=== PATIENT | female | born 1980 | race Caucasian/White ===

== ENCOUNTER 2022-09-12 10:19 | Day surgery (SDC) | payer OTHER, SELFPAY ==
[2022-09-03 12:25] VITALS: BMI 34.8
--- NOTE | 2022-09-11 14:59 | PM.HPGS ---
History of Present Illness History of Present Illness Consent: Risks, benefits, and alternatives have been discussed and questions answered. Patient agrees to proceed with procedure. Chief complaint: Unspecified Abdominal Pain Narrative: Juliana Nunn is a 42 year old female who Who recently began experiencing new onset bilateral sharp abdominal pains.? This lasted for several days.? Prior to this occurring she did have a bowel movement that day but did not been following did not have a bowel movement for several days which is abnormal for her.? She did have an episode of around 3-4 days later of massive diarrhea and felt like something was blocking the stool from coming out with increased burping and decreased appetite.? Around 1 week ago she had a large amount of bright red blood in the toilet that occurred with every bowel movement but has since dissipated. Review of Systems Review of Systems: All systems reviewed & are unremarkable except as noted in HPI and below PMFSH Past Medical History Medical History Family history of bowel cancer Fatigue Hematochezia Lower abdominal pain Plantar fasciitis SOB (shortness of breath) Family History Family History Father Diabetes mellitus Family history of malignant neoplasm of skin Mother Family history of osteoporosis Family history of elevated blood lipids Family history of malignant neoplasm of skin Grandparent Family history of malignant neoplasm of skin Family history of malignant neoplasm of breast in first degree relative Social History Social History Smoking status: Never smoker Alcohol intake: current Substance use: never Substance use type: does not use Living arrangements: with family Spiritual care concerns: No Meds Home Medications and Allergies Home Medications Medication Instructions Recorded Confirmed Type multivitamin k-bmpeyllh-ndyppin 1 tablet PO DAILY 09/03/22 09/12/22 History fumarate 18 mg-vitamin K 25 mcg tablet Allergies Allergy/AdvReac Type Severity Reaction Status Date / Time No Known Allergies Allergy Verified 09/12/22 10:36 Exam Resp: Auscultation: clear to auscultation bilaterally Cardio: Rate: regular rate Rhythm: regular rhythm GI: GI Palp: Yes Soft to palpation and No Tenderness to palpation present (GI) Assessment and Plan Assessment and plan (1) Hematochezia: Code(s): K92.1 - Melena Status: Acute Assessment and Plan: Colonoscopy with possible biopsy or polypectomy or cautery or injection of substances.
--- NOTE | 2022-09-12 09:35 | P.PNAN_ITS ---
Anes - Initial Pre Proc Eval Procedure: Operation Date: 09/12/22 12:00 Proposed Procedures p Diagnostic Colonoscopy - Indio Sanchez MD Date/Time: 09/12/22 09:35 Surgeon: Indio Sanchez MD Pre Op Diagnosis: Unspecified Abdominal Pain Patient Data Age: 42 Gender: F Height: 1.73 m Weight: 104 kg Allergies Allergy/AdvReac Type Severity Reaction Status Date / Time No Known Allergies Allergy Verified 09/12/22 10:36 Home Medications Medication Instructions Recorded Confirmed Type multivitamin z-jondmhaf-yfxrkpf 1 tablet PO DAILY 09/03/22 09/12/22 History fumarate 18 mg-vitamin K 25 mcg tablet Patient hx anesthesia problems: none Family hx anesthesia problems: none Results Review: All pre-operative results and documents have been reviewed as part of the pre- operative evaluation. FOR[facility]LY [facility], [facility] Past Medical History Medical History (Updated 08/27/22 @ 15:39 by Concepción Dimas APRN) Family history of bowel cancer Fatigue Hematochezia Lower abdominal pain Plantar fasciitis SOB (shortness of breath) Family History Family History Father Diabetes mellitus Family history of malignant neoplasm of skin Mother Family history of osteoporosis Family history of elevated blood lipids Family history of malignant neoplasm of skin Grandparent Family history of malignant neoplasm of skin Family history of malignant neoplasm of breast in first degree relative Social History Social History Smoking status: Never smoker Alcohol intake: current Substance use: never Substance use type: does not use Living arrangements: with family Spiritual care concerns: No Anes - Eval Final PreProcedure Day of Procedure 09/12/22 09:35 Patient weight: obese Heart: regular rate and rhythm Lungs: clear to auscultation Airway: Mallampati scale class II Neurological: alert and oriented Last oral intake: >/= 8 hours ASA classification: II Emergent: no Anesthetic plan: proceed Anesthesia type and monitoring: general GIVS and standard monitoring Results Review: All pre-operative results and documents have been reviewed as part of the pre- operative evaluation. Informed Consent: The patient's anesthetic plan and its attendant risks and benefits were discus sed with the patient/family/POA. Questions were solicited and answers provided to the satisfaction of the patient/family/POA.
[2022-09-12 10:43] VITALS: BP 119/86; PULSE 73; RESP 16; TEMP 37; O2SAT 100; BMI 33.5
[2022-09-12] MEDS: LACTATED RINGERS 1,000 ML 150 ML IV CONT (10:53)
[2022-09-12 12:19] VITALS: BP 112/73; PULSE 71; RESP 16; O2SAT 98
[2022-09-12 12:29] VITALS: BP 120/78; PULSE 70; RESP 18; O2SAT 100
[2022-09-12 12:40] VITALS: BP 113/79; PULSE 63; RESP 19; O2SAT 100
--- NOTE | 2022-09-12 13:20 | WPDANESPN ---
Anes - Prog Note Post-Op Date/Time: 09/12/22 13:20 Cardiovascular status: normal Respiratory status: normal Airway patency: baseline Mental status: baseline Post-Op hydration status: normal Vital Signs: Last Vital Signs Temp 37.0 C 09/12/22 10:43 Pulse 63 09/12/22 12:40 Resp 19 09/12/22 12:40 BP 113/79 09/12/22 12:40 Pulse Ox 100 09/12/22 12:40 O2 Del Method Room Air 09/12/22 12:40 Pain Score (VAS): 0 I/O: Intake & Output 09/11/22 09/12/22 09/12/22 23:59 07:59 15:59 Intake Total 1160 Balance 1160 Post-procedural complaints: none Patient Feedback: Patient satisfied with anesthetic care. Other Findings: Patient vital signs back to baseline. Patient denies nausea and vomiting. Patient's pain under control. Patient OK for discharge.
== END 2022-09-12 12:55 | disposition home or self-care (01) ==
PROVIDERS: PCP Family Medicine; Visit Provider Internal Medicine Gastroenterology
PROC: 0DJD8ZZ Inspection of Lower Intestinal Tract, Via Natural or Artificial Opening Endoscopic (ICD-10-PCS; CPT 45378; principal; 2022-09-12 12:00)
DX: K92.1 Melena (principal)
CPT/HCPCS: 45378

== ENCOUNTER 2022-10-18 10:13 | Outpatient (CLI) | payer OTHER, SELFPAY ==
[2022-10-18 14:23] LABS: Cholesterol 222 mg/dL (0-200); HDL Direct 60 mg/dL; Triglycerides 95 mg/dL (<150)
[2022-10-18 14:33] LABS: LDL Cholesterol Direct 117 mg/dL
[2022-10-18 15:22] LABS: Free T4 Free Thyroxine 0.73 ng/mL (0.78-2.19)
== END 2022-10-18 10:14 | disposition home or self-care (01) ==
LOC: ANHGOSHLAB 10:13
PROVIDERS: PCP Family Medicine; Visit Provider Physician Assistant
DX: R79.89 Other specified abnormal findings of blood chemistry (principal)
CPT/HCPCS: 36415; 80061; 84439; 84443

== ENCOUNTER 2022-11-18 09:55 | Outpatient (CLI) | payer OTHER, SELFPAY ==
[2022-11-18 15:17] LABS: Free T4 Free Thyroxine 0.91 ng/mL (0.78-2.19)
== END 2022-11-18 09:56 | disposition home or self-care (01) ==
LOC: ANHGOSHLAB 09:56
PROVIDERS: PCP Family Medicine; Visit Provider Physician Assistant
DX: E03.9 Hypothyroidism, unspecified (principal)
CPT/HCPCS: 36415; 84439; 84443

== ENCOUNTER 2022-12-17 09:49 | Outpatient (CLI) | payer OTHER, SELFPAY ==
[2022-12-17 22:15] LABS: Free T4 Free Thyroxine 1.17 ng/mL (0.78-2.19)
== END 2022-12-17 09:50 | disposition home or self-care (01) ==
PROVIDERS: PCP Family Medicine; Visit Provider Physician Assistant
DX: E03.9 Hypothyroidism, unspecified (principal)
CPT/HCPCS: 36415; 84439; 84443

== ENCOUNTER → 2023-03-07 15:02 | Outpatient (CLI) | payer OTHER, SELFPAY ==
--- NOTE | ~2023-03-07 | MM_ITS ---
EXAMINATION: MM screening omari BI w frederick HISTORY: Screening mammogram TECHNIQUE: Craniocaudal and mediolateral oblique 3-D tomosynthesis images were obtained and synthetic 2-D images were generated. CAD analysis was submitted and interpreted. COMPARISON: No prior mammogram is available for comparison at this institution. BREAST PARENCHYMAL COMPOSITION: The breasts are almost entirely fatty. FINDINGS: There is no evidence of suspicious mass, calcification, or architectural distortion to sugg est malignancy in either breast. There has been no suspicious interval change. IMPRESSION: 1. No mammographic evidence of malignancy. 2. Recommend routine screening mammography in one year. BI-RADS Category 1: Negative Reviewed, dictated and finalized at location B.
== END ==
PROVIDERS: PCP Physician Assistant; Visit Provider Physician Assistant
DX: Z12.31 Encounter for screening mammogram for malignant neoplasm of breast (principal)
CPT/HCPCS: 77063; 77067

== ENCOUNTER 2023-06-12 09:16 | Outpatient (CLI) | payer OTHER, SELFPAY ==
[2023-06-12 14:58] LABS: Basophils Absolute Auto 0.1 K/mm3 (0.0-0.1); Basophils Percent Auto 1.1 % (0.2-1.2); Eosinophils Absolute Auto 0.2 K/mm3 (0-0.3); Eosinophils Percent Auto 2.6 % (0-4.4); Hematocrit 42.8 % (37.0-47.0); Hemoglobin 13.5 g/dL (12.0-15.0); Immature Granulocyte Absolute 0.04 K/mm3 (0.00-0.031); Immature Granulocyte Percent A 0.6 % (0-0.5); Lymphocytes Absolute Auto 2.06 K/mm3 (0.9-3.2); Lymphocytes Percent Auto 31.9 % (18.3-44.2); Mean Corpuscular HGB Conc 31.5 g/dl (32-36); Mean Corpuscular Volume 98.4 fl (80-100); Mean Platelet Volume 10.5 fl (7.4-10.4); Monocytes Absolute Auto 0.5 K/mm3 (0.1-0.6); Monocytes Percent Auto 7.1 % (2.6-8.5); Neutrophils Absolute Auto 3.7 K/mm3 (1.3-6.7); Neutrophils Percent Auto 56.7 % (45.5-73.1); Platelet Count Result 244 k/mm3 (150-375); Red Blood Count 4.35 M/mm3 (4.2-5.4); Red Cell Distribution Width 13.1 % (11.5-14.5); White Blood Count 6.5 K/mm3 (4.5-10.0)
[2023-06-12 15:27] LABS: Alanine Aminotransferase 19 U/L (6-35); Albumin Level 4.1 g/dL (3.5-5.1); Alkaline Phosphatase 58 U/L (38-126); Anion Gap 8 mmol/L (8-16); Aspartate Amino Transferase 52 U/L (14-36); Bilirubin,Total 0.8 mg/dL (0.2-1.3); Blood Urea Nitrogen 14 mg/dL (7-17); Calcium 9.1 mg/dL (8.4-10.2); Carbon Dioxide 24 mmol/L (22-30); Chloride 105 mmol/L (98-107); Cholesterol 229 mg/dL (0-200); Estimated Glomerular Filt Rate > 60; Glucose 67 mg/dL (65-110); HDL Direct 53 mg/dL; Potassium 4.1 mmol/L (3.4-5.0); Sodium 137 mmol/L (137-145); Triglycerides 79 mg/dL (<150)
[2023-06-12 15:38] LABS: LDL Cholesterol Direct 130 mg/dL
[2023-06-12 18:30] LABS: Free T4 Free Thyroxine 0.95 ng/mL (0.78-2.19)
[2023-06-12 20:00] LABS: Hemoglobin A1C 5.3 % (<5.7)
[2023-06-15 02:50] LABS: Thyroid Peroxidase Antibodies 1045 IU/mL (<9)
== END 2023-06-12 09:17 | disposition home or self-care (01) ==
LOC: ANHGOSHLAB 09:18
PROVIDERS: PCP Physician Assistant; Visit Provider Internal Medicine Endocrinology, Diabetes & Metabolism
DX: E03.9 Hypothyroidism, unspecified (principal); R63.5 Abnormal weight gain; R79.89 Other specified abnormal findings of blood chemistry; Z83.3 Family history of diabetes mellitus
CPT/HCPCS: 36415; 80053; 80061; 83036; 84439; 84443; 85025; 86376

== ENCOUNTER 2024-03-16 15:26 | Outpatient (CLI) | payer OTHER, SELFPAY ==
--- NOTE | ~2024-03-16 | CT_ITS ---
EXAMINATION: CT abdomen pelvis w con DATE: 03/16/2024 16:18 INDICATION: Unspecified abdominal pain. TECHNIQUE: Computed tomography (CT) of the abdomen and pelvis was performed with 100 mL Omnipaque 350 intravenous contrast. Automated exposure control and iterative reconstruction technique were employe d. The dose-length product was 1228.28 mGy-cm. COMPARISON: None. FINDINGS: The visualized portions of lung bases and stable mild atelectasis. No pleural effusion. The heart size is normal. No pericardial effusion. The liver, gallbladder, spleen, pancreas, adrenal gla nds, and kidneys are normal. There is an intrauterine device in expected position. There are no dilat ed loops of bowel. The appendix is normal. There are no pathologically enlarged lymph nodes. There is no free intraperitoneal fluid. There is mild thoracic and lumbar spondylosis. IMPRESSION: 1. No etiology for the patient's symptoms. Reviewed, dictated and finalized at location A.
== END 2024-03-16 15:27 | disposition home or self-care (01) ==
PROVIDERS: PCP Family Medicine; Visit Provider Nurse Practitioner Family
DX: R10.9 Unspecified abdominal pain (principal); R19.7 Diarrhea, unspecified
CPT/HCPCS: 74177; Q9967

== ENCOUNTER 2024-08-10 14:44 | Outpatient (CLI) | payer OTHER, SELFPAY ==
--- NOTE | ~2024-08-10 | MM_ITS ---
EXAMINATION: MM screening omari BI w frederick HISTORY: Screening mammogram TECHNIQUE: Craniocaudal and mediolateral oblique 3-D tomosynthesis images were obtained and synthetic 2-D images were generated. CAD analysis was submitted and interpreted. COMPARISON: 03/07/2023 BREAST PARENCHYMAL COMPOSITION:Not Dense. The breasts are almost entirely fatty FINDINGS: No suspicious mass, calcification, or architectural distortion are identified in either gabbie ast to suggest malignancy. There has been no suspicious interval change. IMPRESSION: No mammographic evidence of malignancy. Recommend routine screening mammography in one year. BI-RADS Category 1: Negative Reviewed, dictated and finalized at location .
== END 2024-08-10 14:45 | disposition home or self-care (01) ==
LOC: MICIMG 14:45
PROVIDERS: PCP Family Medicine; Visit Provider Obstetrics & Gynecology
DX: Z12.31 Encounter for screening mammogram for malignant neoplasm of breast (principal)
CPT/HCPCS: 77063; 77067

== ENCOUNTER 2024-08-25 10:07 | Outpatient (CLI) | payer OTHER, SELFPAY ==
--- OUTSIDE RECORDS SUMMARY | 2024-08-25 11:21 | XMS_ITS | Clinical Summary ---
Author Organization [facility] Address [address] [place] [address] Care Team Providers Care Baker Bread Name Role Phone Boyd Mcqueen MD Primary Care Provider [phone] Source Comments [facility],non-owned Affiliates and Associated Physician Practices is amultiple site organization consisting of ambulatory clinics and hospital sitesin [place], [place], [place] and [place]. This disclosure is being madepursuant to the Care Everywhere program and may not contain all information available regarding this patient. Last updated 18.[facility] [place] [facility] Allergies No known active allergies Immunizations Name Administration Dates Next Due INFLUENZA VACCINE, QUADR. (F LUZONE; FLULAVAL; FLUARIX; AFLURIA QUADRIVALENT; 6MO+), 0.5 ML (IIV4) 04/07/2020,04/28/2019,03/22/2018 Social History Tobacco Use Types Packs/Day Years Used Date Smoking Tobacco: Never Assessed Sex and Gender Information Value Date Recorded Sex Assigned at Not on file Gender Identity Not on file Sexual Orientation Not on file Plan of Treatment Health Maintenance Due Date Last Done Comments LIPID TESTING 1982 MAMMOGRAM 1982 PAP SMEAR 1982 HIV SCREENING 1997 HEPATITIS C SCREENING 08/18/2000 DTAP/TDAP/TD VACCINES (1 - Tdap) 2001 HEPATITIS B VACCINE (1 of 3 - 19+ 3-dose series) 2001 COVID-19 VACCINE (2023-2 5 season) 2024 INFLUENZA VACCINE (#1) 2024 , 04/28/2019, 03/22/2018 DEPRESSION SCREENING 06/02/2024 ZOSTER VACCINE (1 of 2) 2032 HIB VACCINE Aged Out No longer eligi ble based on patient's age to complete this topic HPV VACCINE Aged Out No longer eligi ble based on patient's age to complete this topic MENINGOCOCCAL (Group B) VACCINE SHARED DECISION-MAKING Aged Out No longer eligible based on patient's age to complete this topic MENINGOCOCCAL GROUPS A/C/Y/W VACCINE Aged Out No longer eligible b ased on patient's age to complete this topic PNEUMOCOCCAL VACCINE Aged Out No long er eligible based on patient's age to complete this topic Care Teams Baker Bread Relationship Specialty Start Date End Date Boyd Mcqueen MD [facility] [place] [id number] PCP - General Family Medicine 03/22/18
--- OUTSIDE RECORDS SUMMARY | 2024-08-25 11:21 | XMS_ITS | Data Portability ---
Author Organization [facility] Address [address] [place] [address] [place] [address] Care Team Providers Care Ballistic Expert Name Role Phone GRANTJORDAN KATHI Primary Care Provider Assessment Encounter Date Assessment Date Assessment LastModified by Organization Details LastModified Time 10/12/2019 10/12/2019 Annual gynecological exam performed. Patient will come back in a year unless there are new symptoms. [email or web address] Not available 10/12/2019 12:09:20 10/13/2020 10/13/2020 Mom-colon cancer MGM-Breast cancer [email or web address] Not available 10/13/2020 16:41:54 10/02/2022 10/02/2022 Annual gynecological exam performed. Patient will come back in a year unless there are new symptoms. [email or web address] Not available 10/02/2022 16:07:46 01/07/2024 01/07/2024 Annual gynecological exam performed. Patient will come back in a year unless there are new symptoms. [email or web address] Not available 01/07/2024 10:49:09 Plan of Treatment Reminders Order Date Submit Date Provider Last Modified By Organization Details Last Modified Time Details Appointments None recorded. Lab None recorded. Referral None recorded. Procedures None recorded. Surgeries None recorded. Imaging MAMMO, screening, digital, bilateral 2023 024 [facility], [address], [place], [address], 05:01:19 MAMMO, screening, bilateral 2022 023 [facility], [address], [place], [address], 3 05:00:49 Medication Orders None recorded. Patient TargetsNo targets recorded. Patient InstructionsNo instructions recorded. Reason for Referral None Reported. Results Created Date Observation Date Name Description Value Unit Range Abnormal Flag Note LastModifiedBy Organization Detail LastModifiedTime 10/12/19 20 10/13/2019 pap, LB Pap test thin prep Negati ve for Intrae pithel ial Lesion or Malign bj normal ACCES CHUN #: [id number] Sourc e: Cervi feroz/E ndoce rvica l LMP: 09/30 Date Taken : 10/11 Speci men Type: ThinP rep Vial Date Repor lauro: 2019 Clini feroz Data: Cytot ech: Milton Rocha s, CT( CP) Date Repor lauro: 2019 Speci men Adequ acy: Satis facto ry for evalu ation Endoc ervic al/tr ansfo rmati on zone compo nent prese nt Gener al Categ oriza tion: NEGAT SKIP FOR INTRA EPITH ELIAL LESIO N OR MALIG GERARDO This speci men has been ernie zed by the ThinP rep Imagi ng Syste m, an inter activ e compu ter syste m which juan ts the lab in the scree mariya of ThinP rep Pap Test slide s. Follo imagi ng, the slide was revie wed by a Cytot echno logis t and/o r Patho logis t. D N A A S S A Y S R E P O R T TEST NAME RESUL TS ----- ---- ----- -- HPV High Risk Scree n (TMA) ThinP rep Vial The human papil lomav irus (HPV) High Risk Scree n is an FDA-a pprov ed in-vi tro ampli fied nucle ic acid test for the quali tativ e detec tion of E6/E7 viral mRNA. Resul ts shoul d be corre lated with patie nt prese ntati on, histo ry, cervi feroz cytol ogy and other clini feroz and labor atory findi ngs. See https ://KIT digital/s ites/ defau lt/fi 0 /AW- [id number] _002_ 01.pd f for jorge er infor anjali n. Test perfo rmed by [employer] [email or web address], d/b/a [facility], [address], [place] [address] , Gema Jacinto ra, DO, Labor atory Dire tor. HPV High Risk *HPV NOT DETEC LAURO (TYPE S 16, 18, 31, 33, 35, 39, 45, 51, 52, 56, 58, 59, 66, 68) *HPV: The human papil lomav irus (HPV) High Risk Rand christensen is an FDA-a pprov ed in-vi tro ampli fied nucle ic acid test for the quali tativ e detec tion of E6/E7 viral mRNA. Resul gabrielle arroyo corre lated with manish rojas prese ntati on, histo ry, cervi feroz cytol ogy and other clini feroz and labor atory findi ngs. See https ://KIT digital/s ites/ defau lt/fi 0180 /AW- [id number] _002_ 01.pd f for jorge er infor anjali n. Test perfo rmed by [email or web address], d/b/a [facility], [address], [place] [address] , Gema Jacinto ra, , Labor atory [place]ire [facility]. End of t Techn ical servi bella provi ded by [email or web address], d/b/a [facility], [address] [place] [address] Adin Rivera MD, Labor ator Dire tor. Case revie wed and diagn osis rende red at [email or web address], d/b/a [facility], [address] [place] [address] Adin Rivera MD, [facility]. CONFI DENTI AL Not Available [facility] ([facility]) [address], [place], [address], 10/13/2019 18:02:46 10/12/19 20 10/13/2019 HPV DNA, high- risk HPV high risk NOT DETECT ED normal Not Available [facility] ([facility]) [address], [place], [address], 10/13/2019 18:02:46 10/14/19 21 10/13/2020 pap, IG + HR HPV image guided Pap, HPV regardless of Pap result SEE RESULT S BELOW CASE REPOR T: Cytol ogy Gynec ologi feroz Repor t Case: [id number] Autho queenie kingsley Provi yaquelin: Hector Piper Colle cted: 10/13 1611 [employer] Order ing Locat ion: [place] Patho logy Recei ryan: 10/14 0145 First Scree n: Pepito Valdovinos, CT Speci men: Scree mariya Pap - Image d, Cervi x STATE MENT OF ADEQU ACY: Satis facto ry for evalu ation Trans forma tion zone compo nent absen t FINAL DIAGN OSIS: Negat skip for Intra epith elial Lesjacques n or Melinda lee sarah d by Pepito Valdovinos, CT on 2020 at 8:45 PM ----- ----- ----- ----- ----- ----- ----- ----- ----- ----- ----- ----- ----- ----- ----- ----- ----- ---- HPV RESUL TS: HPV mRNA E6/E7 : No HPV mRNA Detec lauro NOTE: This high risk HPV mRNA assay detec ts fourt een high- risk HPV types (16, 18, 31, 33, 35, 39, 45, 51, 52, 56, 58, 59, 66, 68) witho ut diffe renti ation . CHART ABLE COMME NT: Note: This speci men was revie wed by a Cytot echno logis t and/o r Patho logis t (as indic ated in this repor t) after evalu ation using the Thinp rep Imagi ng Syste m. CLINI FEROZ INFOR MATIO N: Menst rual Statu s: LMP (if appli cable ): 2018 Clini feroz Histo ry/Pr eviou s Pap: Type of Neopl nadja (if appli cable ): Other Histo ry: Hormo janeen (if appli cable ): PAP EDUCA JAMES L NOTE: The Pap Test is a scree mariya test with an inher ent false negat skip rate. Liqui d-bas e sampl ing may decre ase, but will not elimi , false negat skip resul ts. A negat skip resul t does not precl ude the prese nce and/o r devel opmen t of disea se, since the prese nce of abnor mal cells in the sampl e depen ds on the locat ion of the lesio n and sampl ing techn ique. Sushma nued regul ar scree mariya is the best metho d of cance r preve ntion . If repor lauro cytol ogic findi ng do not corre late with physi feroz and/o r histo rical findi ngs, furth er inves tigat ion is recom greta d, as clini luann warrmarla nted. Not Available [facility] (Lab) [address], [place], [address], 10/16/2020 21:48:05 10/03/19 23 10/02/2022 IMAGE GUIDE D PAP AND HPV REGAR DLESS image guided Pap, HPV regardless of Pap result SEE RESULT S BELOW CASE REPOR T: Cytol ogy Gynec ologi feroz Repor t Case: [id number] Autho queenie kingsley Provi yaquelin: Hector Piper Colle cted: 10/024 [employer] Order ing Locat ion: [place] Patho logciat Recei ryan: 10/03 First Scree n: Miladis Gonzalez, CT Rescr een: aRquel Cuenca ed, CT Speci men: Scree mariya Pap - Image d, Cervi x STATE MENT OF ADEQU ACY: Satis facto ry for evalu ation Trans forma tion zone compo nent absen t The absen ce of an endoc ervic al compo nent was confi rmed by an addit ional scree ner. FINAL DIAGN OSIS: Negat skip for Intra epith elial Lesio n or Melinda angel (NIL) . Elect tomasz lee sarah d by Raquel Cuenca ed, CT on 023 at 7:06 PM ----- ----- ----- ----- ----- ----- ----- ----- ----- ----- ----- ----- ----- ----- ----- ----- ----- ---- HPV RESUL TS: HPV mRNA E6/E7 : No HPV mRNA Detec lauro NOTE: This high risk HPV mRNA assay detec ts fourt een high- risk HPV types (16, 18, 31, 33, 35, 39, 45, 51, 52, 56, 58, 59, 66, 68) witho ut diffe renti ation . COMME NT: This speci men was revie wed by a Cytot echno logis t and/o r Patho logis t (as indic ated in this repor t) after evalu ation using the Thinp rep Imagi ng Syste m. CLINI FEROZ INFOR MATIO N: Menst rual Statu s: LMP (if appli cable ): Clini feroz Histo ry/Pr eviou s Pap: Type of Neopl nadja (if appli cable ): Signi fican t Clini feroz Findi ngs: Other Histo ry: Hormo janeen (if appli cable ): PAP EDUCA JAMES L NOTE: The Pap Test is a scree mariya test with an inher ent false negat skip rate. Liqui d-bas ed sampl ing may decre ase, but will not elimi , false negat skip resul ts. A negat skip resul t does not precl ude the prese nce and/o r devel opmen t of disea se, since the prese nce of abnor mal cells in the sampl e depen ds on the locat ion of the lesio n and sampl ing techn ique. Sushma nued regul ar scree mariya is the best metho d of cance r preve ntion . If repor lauro cytol ogic findi ng do not corre late with physi feroz and/o r histo rical findi ngs, furth er inves tigat ion is recom greta d, as clini luann russell nted. Not Available [facility] (Lab) [address], [place], [address], 10/04/2022 20:09:31 01/07/20 24 01/07/2024 IMAGE GUIDE D PAP AND HPV REGAR DLESS image guided Pap, HPV regardless of Pap result SEE RESULT S BELOW CASE REPOR T: Cytol ogy Gynec ologi feroz Repor t Case: [id number] Autho queenie kingsley Provi yaquelin: Chiquita Coleman, YOKASTA Mehta cted: 01/06 1055 Order ing Locat ion: [place] Patho logy Recei ryan: 01/07 0101 First Scree n: June Colunga ret, CT Speci men: Scree mariya Pap - Image d, Cervi x STATE MENT OF ADEQU ACY: Satis facto ry for evalu ation Trans forma tion zone compo nent prese nt ----- ----- ----- ----- ----- ----- ----- ----- ----- ----- ----- ----- ----- ----- ----- ----- ----- ---- FINAL DIAGN OSIS: Negat skip for Intra epith elial Lesio n or Melinda angel (NIL) . Elect tomasz lee sarah d by June Colunga ret, CT on 2023 at 1:07 PM ----- ----- ----- ----- ----- ----- ----- ----- ----- ----- ----- ----- ----- ----- ----- ----- ----- ---- HPV RESUL TS: HPV mRNA E6/E7 : No HPV mRNA Detec lauro NOTE: This high risk HPV mRNA assay detec ts fourt een high- risk HPV types (16, 18, 31, 33, 35, 39, 45, 51, 52, 56, 58, 59, 66, 68) witho ut diffe renti ation . COMME NT: This speci men was revie wed by a Cytot echno logis t and/o r Patho logis t (as indic ated in this repor t) after evalu ation using the Thinp rep Imagi ng Syste m. CLINI FEROZ INFOR MATIO N: Menst rual Statu s: LMP (if appli cable ): Clini feroz Histo ry/Pr eviou s Pap: Type of Neopl nadja (if appli cable ): Signi fican t Clini feroz Findi ngs: Other Histo ry: Hormo janeen (if appli cable ): PAP EDUCA JAMES L NOTE: The Pap Test is a scree mariya test with an inher ent false negat skip rate. Liqui d-bas ed sampl ing may decre ase, but will not elimi , false negat skip resul ts. A negat skip resul t does not precl ude the prese nce and/o r devel opmen t of disea se, since the prese nce of abnor mal cells in the sampl e depen ds on the locat ion of the lesio n and sampl ing techn ique. Sushma nued regul ar scree mariya is the best metho d of cance r preve ntion . If repor lauro cytol ogic findi ng do not corre late with physi feroz and/o r histo rical findi ngs, furth er inves tigat ion is recom greta d, as clini luann russell nted. Not Available [facility] (Lab) [address], [place], [address], 01/14/2024 14:11:02 08/11/1908/10/2024 MAMMO , scree mariya, digit al, bilat eral No observ ation record ed. [facility] [address], [place], [address], 08/11/2024 12:26:14 Result Notes None recorded. Problems Name Problem SNOMED Code Status Onset Date Resolution Date Notes Provider Name and Address Organization Details Recorded Time Pregnanc y test negative [id number] Completed 201610/13/2020 Encounte r for pregnanc y test, result negative ;Recorde d Elsewher e: No Locat ion: [facility] S ource: EHR Alterations Supervisor carolina: Pastor Mccall ce ID: 0001 Twan lable Time: 02:00:00 PM Vidhi [facility] 16:09:09 Speciali zed medical examinat ion Completed 201010/13/2020 Gynecolo gical Examinat ion;Rosas rded Elsewher e: No Locat ion: [facility] S ource: EHR Alterations Supervisor carolina: N Stefany ce ID: 0001 Twan lable Time: 02:45:00 PM Vidhi Bishop [facility] 16:09:30 Irregula r periods [id number] Completed 201310/13/2020 Irregula r menstrua l cycle;Re corded Elsewher e: No Locat ion: [facility] S ource: EHR Alterations Supervisor carolina: N Lillyti ce ID: 0001 Twan lable Time: 09:15:00 AM Vidhi Bishop [facility] 16:09:[address] Concept Completed 201410/13/2020 Encntr for bad credit collector exam (general ) (routine ) w/o abn findings ;Recorde d Elsewher e: No Locat ion: [facility] S ource: EHR Alterations Supervisor carolina: N Practi ce ID: 0001 Twan lable Time: 04:30:00 PM Vidhi pettit [facility] 16:09:21 Family planning surveill ance Completed 201310/13/2020 Contrace ptive surveill ance, unspecif ied;Rosas rded Elsewher e: No [facility] ource: EHR Alterations Supervisor carolina: N Practi ce ID: 0001 Twan lable Time: 03:30:00 PM Vidhi Bishop [facility], [facility] 16:09:19 Abnormal uterine bleeding [id number] 100 Completed 201610/13/2020 Other specifie d abnormal uterine and vaginal bleeding ;Recorde d Elsewher e: No Locat ion: [facility] S ource: EHR Alterations Supervisor carolina: N Practi ce ID: 0001 Twan lable Time: 02:30:00 PM Vidhi pettit, [facility] 16:09:27 Postpart um care Completed 201210/13/2020 Post Followup ;Recorde d Elsewher e: No Locat ion: [facility] S ource: EHR Alterations Supervisor carolina: N Practi ce ID: 0001 Twan lable Time: 11:15:00 AM Vidhi pettit, [facility] 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 16:09:02 Body mass index 30+ - obesity [id number] Completed 201710/13/2020 Body mass index (BMI) 31.0-31. 9, adult;Re corded Elsewher e: No Locat ion: [facility] S ource: EHR Alterations Supervisor carolina: N Practi ce ID: 0001 Twan lable Time: 11:30:00 AM Vidhi pettit, [facility] 16:08:54 Uterine size for dates discrepa ncy [id number] Completed 201210/13/2020 UTERINE SIZE MIRA-ANTE PAR;Rosas rded Elsewher e: No Locat ion: [facility] S ource: EHR Alterations Supervisor carolina: N Practi ce ID: 0001 Twan lable Time: 04:45:00 PM Vidhi pettit, [facility] 16:09:25 Pregnanc y test positive [id number] Completed 201010/13/2020 Pregnanc y examinat ion or test, positive result;R ecorded Elsewher e: No [facility]at ion: [facility]: N Practi ce ID: 0001 Twan lable Time: 02:45:00 PM Vidhi pettit, [facility] 16:09:07 Routine antenata l care Completed 201210/13/2020 Supervis ion of other normal pregnanc y;Practi ce ID: 0001 Vidhi pettit, [facility] 16:08:51 Labor and delivery complica lauro by heart rate anomaly [id number] Completed 201210/13/2020 HEART RATE NON REASSURI NG;Pract ice ID: 0001 Vidhi pettit, [facility] 16:09:10 Delivery normal [id number] Completed 201210/13/2020 Normal delivery ;Practic e ID: 0001 Vidhi pettit, [facility] 16:09:28 Single live [id number] Completed 201210/13/2020 Mother with single liveborn ;Practic e ID: 0001 Vidhi pettit, [facility] 16:08:57 Screenin g for malignan t neoplasm of cervix Completed 201210/13/2020 Pap Smear;Pr actice ID: 0001 [facility]:08:58 Insertio n of intraute rine contrace ptive device Completed 201310/13/2020 INSERTIO N OF IUD;Prac chris ID: 0001 [facility] 16:09:34 Obesity [id number] Completed 201310/13/2020 Obesity, unspecif ied;Prac chris ID: 0001 Vidhi pettit, [facility] 16:09:24 Adult health examinat ion Completed 201310/13/2020 Routine general medical examinat ion at a health care facility ;Practic e ID: 0001 iVdhi pettit, [facility] 16:09:12 Removal of intraute rine device Completed 201810/13/2020 Encounte r for removal of intraute rine contrace ptive device;P ractice ID: 0001 Vidhi pettit, [facility] 16:09:35 Chlamydi al vulvovag initis [id number] Completed 201810/13/2020 Chlamydi al vulvovag initis;P ractice ID: 0001 Vidhi pettit [facility] 16:09:03 Female genital organ symptoms [id number] Completed 201210/13/2020 Unspecif ied symptom associat ed with female genital organs;R ecorded Elsewher e: No Locat ion: [facility] S ource: EHR Alterations Supervisor carolina: N Lillyti ce ID: 0001 Twan lable Time: 02:45:00 PM Vidhi pettit [facility] 16:09:[address] Concept Completed 201610/13/2020 Encntr for general adult medical exam w/o abnormal findings ;Recorde d Elsewher e: No Locat ion: [facility] S ource: EHR Alterations Supervisor carolina: N Stefany ce ID: 0001 Twan lable Time: 04:30:00 PM Vidhi pettit [facility] 1 16:09:22 Infectio n screenin g Completed 201810/13/2020 Encounte r for screenin g for oth infec/pa rastc diseases ;Recorde d Elsewher e: No Locat ion: [facility] S ource: EHR Alterations Supervisor carolina: N Lillyti ce ID: 0001 Twan lable Time: 12:00:00 PM Vidhi pettit [facility] 16:09:06 Ultrason ography Completed 201210/13/2020 Antenata l screenin g for malforma tion using ultrason ics;Rosas rded Elsewher e: No Locat ion: [facility] S ource: EHR Alterations Supervisor carolina: N Lillyti ce ID: 0001 Twan lable Time: 03:00:00 PM Vidhi pettit [facility] 16:08:55 Antenata l screenin g Completed 201210/13/2020 Antenata l screenin g for malforma tion using ultrason ics;Rosas rded Elsewher e: No [facility] Al[facility] Supervisor carolina: N Practi ce ID: 0001 Twan lable Time: 03:00:00 PM Vidhi pettit [facility] 16:09:05 Congenit al malforma tion [id number] Completed 201210/13/2020 Antenata l screenin g for malforma tion using ultrason ics;Rosas rded Elsewher e: No Locat ion: [facility] S ource: EHR Alterations Supervisor carolina: N Practi ce ID: 0001 Twan lable Time: 03:00:00 PM Vidhi pettit, [facility] 16:09:16 Eruption [id number] Completed 201110/13/2020 Rash and other nonspeci fic skin eruption ;Recorde d Elsewher e: No Locat ion: [facility] S ource: EHR Alterations Supervisor carolina: N Practi ce ID: 0001 Twan lable Time: 12:15:00 PM Vidhi pettit [facility] 16:09:14 Amenorrh ea [id number] Completed 201010/13/2020 AMENORRH EA;Pract ice ID: 0001 Vidhi pettit, [facility] 16:08:52 Primigra zackery [id number] Completed 201010/13/2020 Supervis ion of normal first pregnanc y;Practi ce ID: 0001 Vidhi pettit [facility] 16:08:48 anatomy study Completed 201010/13/2020 [facility] ANATMC SURVEY;P ractice ID: 0001 Vidhi Dario ohdan [facility] 16:09:13 Threaten ed miscarri age [id number] Completed 201210/13/2020 Threaten ed , antepart ;Pract ice ID: 0001 Vidhi Bishop null, [facility] 16:09:32 Complica tion of pregnanc y, childbir th and/or puerperi [id number] Completed 201210/13/2020 Other current conditio ns classifi able elsewher e of mother, antepart um;Pract ice ID: 0001 Vidhi Bishop null, [facility] 16:09:01 Problem Notes None recorded. Procedures Surgical History Date Name Laterality Status Provider Name and Address Organization Details Recorded Time 01/04/20 Date of Last Mammogram completed Tiffanie Velasquez [facility] 01/07/2024 10:49:43 09/03/19 23 colonoscopy completed Lis Palacios, [facility] [address], [place], [address], [place] [facility] 10/02/2022 16:26:53 09/01/19 23 Date of Last Colonoscopy completed Sasha Morgan [facility] 10/02/2022 16:09:55 Imaging Results Imaging Date Name Status LastModified by Organiz ation Details LastModified Time 08/10/2024 MAMMO, screening, digital, bilateral completed [facility] [address], [place], [address], 08/11/2024 12:26:14 Procedure Notes None recorded. Medical Equipment None Reported. Allergies No known drug allergies Medications Name Sig Start Date Stop Date Status Note LastModified by Organization Details LastModified Time Mirena 21 mcg/24 hr (up to 8 years) 52 mg intrauter ine device Take by intraute rine route. 2018 active Not Available Not Available Not Avai lable dicloxaci llin 500 mg capsule take 1 capsule (500MG) by oral route every 6 hours 1 hour before a meal or 2 hours after a meal 03/17 completed Prescrib ed Elsewher e: No Locat ion: Edy coyle [facility] odify By: ede monroe DateTime : 11/04/19 12 04:15:00 PM Not Available Not Available Not Available meloxicam 7.5 mg tablet TAKE 1 TABLET BY MOUTH EVERY DAY WITH MEALS FOR 21 DAYS 10/13 completed Not Available Not Available Not Available Cortaid 1 % topical spray apply topicall y to affected area BID 03/17 completed Prescrib ed Elsewher e: No Locat ion: Edy coyle [facility] odify By: ede monroe DateTime : 11/04/19 12 04:15:00 PM Not Available Not Available Not Available Synthroid 50 mcg tablet TAKE 1 TABLET BY MOUTH DAILY active Not Available Not Available No t Available Vitamin D2 1,250 mcg (50,000 unit) capsule take 1 capsule (98870TB ITS) by oral route every week 04/26 completed Prescrib ed Elsewher e: No Locat ion: Edy coyle [facility] odify By: huseyin monroe DateTime : 01/19/20 13 02:22:35 PM Not Available Not Available Not Available PreviDent 5000 Plus 1.1 % cream BRUSH EVERY DAY BEFORE BEDTIME active Not Available Not Available No t Available Colace 50 mg capsule take 1 capsule by oral route every day at bedtime as needed 05/18 completed Prescrib ed Elsewher e: Yes Loca tion: Edy coyle [facility] odify By: leah valenzuela DateTime : 04/26/20 13 11:15:00 AM Not Available Not Available Not Available Zithromax 500 mg tablet take 2 tablet by oral route all at once 07/03 completed Prescrib ed Elsewher e: No Locat ion: Edy coyle [facility] odify By: cary gorman DateTime : 07/01/19 19 11:26:12 AM Not Available Not Available Not Available 10 mg-400 mcg capsule 03/13 completed Prescrib ed Elsewher e: Yes Loca tion: Edy coyle [facility] odify By: ede Leonides ncounter DateTime : 03/13/20 11 02:45:00 PM Not Available Not Available Not Available Gwendolyn-Ned uo DHA 29 mg-1 mg-400 mg oral pack take 1 by Oral route every day 05/23 completed Prescrib ed Caroline e: No Locat ion: Edy coyle [facility] M odify By: amkedwin Coyle ncounter DateTime : 09/17/19 14 04:20:31 PM Not Available Not Available Not Available Mounjaro 2.5 mg/0.5 mL subcutane ous pen injector INJECT 2.5 MG UNDER THE SKIN ONCE A WEEK FOR 4 WEEKS 01/06 completed Not Available Not Available Not Available tirzepati de (weight loss) 5 mg/0.5 mL subcutane ous pen injector Inject by subcutan eous route. active Not Available Not Available No t Available Vitals Date Recorded Body height Body mass index (BMI) Body weight Systolic blood pressure Diastolic blood pressure Provider Name and Address Organization Details Last Updated DateTime 10/13/2020 165.1 cm 37.6 kg/m2 107571.8 8 g 114 mm[Hg] 78 mm[Hg] Vidhimahad Bishop [facility] 1 16:13:35 Date Recorded Body height Body mass index (BMI) Body weight Systolic blood pressure Diastolic blood pressure Provider Name and Address Organization Details Last Updated DateTime 10/02/2022 165.1 cm 38.4 kg/m2 975668.8 4 g 124 mm[Hg] 81 mm[Hg] Sasha Morgan [facility] 3 16:08:08 Date Recorded Body height Body mass index (BMI) Body weight Systolic blood pressure Diastolic blood pressure Provider Name and Address Organization Details Last Updated DateTime 01/07/2024 165.1 cm 37.6 kg/m2 624019.8 8 g 112 mm[Hg] 72 mm[Hg] Tiffanie Velasquez [facility] 4 10:49:31 Date Recorded Body height Body mass index (BMI) Body weight Systolic blood pressure Diastolic blood pressure Provider Name and Address Organization Details Last Updated DateTime 10/12/20192041.16 cm 0.2 kg/m2 49233.54 g 115 mm[Hg] 75 mm[Hg] Eli Garcia [facility] 12:12:06 Social History Question Answer Notes LastModified by Organizat ion Details LastModified Time Tobacco Smoking Status Never Smoker Karen Covington hodan [facility] 10/02/2022 16:00:31 Do You Have An Advance Directive? No Information n ot available 10/13/2020 What Is Your Level Of Alcohol Consumption? Occasional [email or web address] Information not available 10/13/2020 How Many Years Have You Consumed Alcohol? 7 [email or web address] Information not available 10/13/2020 Are You Blind Or Do You Have Difficulty Seeing? No [email or web address] Information n ot available 10/13/2020 What Is Your Level Of Caffeine Consumption? Moderate [email or web address] Information not available 10/13/2020 How Much Tobacco Do You Chew? None Information not available 10/13/2020 In The 14 Days Before Symptom Onset, Have You Had Close Contact With A Laboratory-confirm ed COVID-19 While That Case Was Ill? No [email or web address] Information n ot available 10/13/2020 In The 14 Days Before Symptom Onset, Have You Had Close Contact With A Person Who Is Under Investigation For COVID-19 While That Person Was Ill? No [email or web address] Information not available 10/13/2020 Have You Been To An Area Known To Be High Risk For COVID-19? No [email or web address] Information not available 10/13/2020 Are You Deaf Or Do You Have Serious Difficulty Hearing? No [email or web address] Information not available 10/13/2020 What Type Of Diet Are You Following? REGULAR [email or web address] Information n ot available 10/13/2020 What Is The Highest Grade Or Level Of School You Have Completed Or The Highest Degree You Have Received? [id number] [email or web address] Information not available 10/13/2020 What Is Your Occupation? Teacher [email or web address] Information not available 10/13/2020 Are There Any Guns Present In Your Home? Yes [email or web address] Information not available 10/13/2020 Do You Use Protection During Sex? Always [email or web address] Information not available 10/13/2020 Do You Use Your Seat Belt Or Car Seat Routinely? Yes [email or web address] Information not available 10/13/2020 Do You Have Smoke And Carbon Monoxide Detectors In Your Home? Yes [email or web address] Information not available 10/13/2020 How Much Tobacco Do You Smoke? No [email or web address] Information not available 10/13/2020 Do You Feel Stressed (tense, Restless, Nervous, Or Anxious, Or Unable To Sleep At Night)? UC8975-8 [email or web address] Information not available 10/13/2020 Do You Use Any Illicit Or Recreational Drugs? No Information not available 10/13/2020 Do You Use Sunscreen Routinely? No [email or web address] Information not available 10/13/2020 Have You Used IV Drugs? No Information not available 10/13/2020 Sex: Unknown Functional Status Question Answer Note LastModified by Organization D etails LastModified Time Are you able to walk? YESWOREST [email or web address] Information not available 10/13/2020 What is your exercise level? Heavy [email or web address] Information not available 10/13/2020 Mental Status None recorded. Family History Relationship Description Onset Age of this Age Resolved Age Notes LastModified by Organization Details LastModified Time Maternal Grandmother Carcinoma in situ of breast 55 deceas ed from [place] [id number] Not available 01/07/2024 10:49:37 Father Diabetes mellitus [email or web address] Not available 2019 11:47:27 [email or web address] 2023 10:49:37 Mother Malignant tumor of colon [place] [address] Not available 2023 10:49:37 Medical History Condition Response Allergies (Food, seasonal, environmental ) N Other N Breast Cancer N Drug/Latex Allergies/Reactions N Blood Transfusion N Dermatologic Disorders N Lung Disease N Defects or Inherited Disease N Breast Problem N Gestational Diabetes N Hematologic disorders N Anesthesia Complications N History of STI N Deep Vein Thrombosis N Polycystic ovary syndrome N Anxiety Disorder N Autoimmune disease N Arthritis N Infertility N Polyps N Acid Reflux (GERD) N History of abnormal pap N Cancer N Stroke N Varicosities N Neurologic/Epilepsy N Endometriosis N High Cholesterol N Headaches N Fibromyalgia N Kidney Disease N Heart Problems N Kidney or Bladder Problems N Thyroid Problems Y GI Problems N Eating Disorder N Anemia N Art (IVF or FET) N Psychiatric Illness N Ovarian Cancer N Diabetes N Pulmonary (TB, Asthma) N Hepatitis/Liver Disease N No Past Medical History N Eczema N Urinary Tract Infection N Abuse/Domestic Violence N Asthma N Trauma/Violence N Depression/ depression N Heart Disease N Pre-Eclampsia N Hypertension N Osteoporosis N Thrombophilias N Gynecological History Statement/Question Response Abnormal Pap N Date of Last Mammogram 01/03/2023 Date of LMP On BCP's at Conception? N STIs/STDs N HPV Vaccine N Colposcopy Current Control Method IUD Age at First Child 40 Are cycles usually normal N Date of Last Colonoscopy 08/31/2022 Sexually Active? Y Menses Monthly N Date of DEXA bone scan Age of first menstrual cycle 16 Date of Last Pap Smear Sexual Problems? N Desired Control Method IUD LMP Unknown Y Obstetrics History GPAL:G 2 P 2 0 0 2 Type Value Full Term 2 Living 2 Total 2 Past Encounters Encounter ID Performer Location Encounter Start Date Encounter Closed Date Diagnosis/Indication Diagnosis SNOMED-CT Code Diagnosis ICD10 Code Diagnosis Note [id number] [facility] [facility] [address] [address] 10/12/2019 11:53:34 10/12/2019 13:15:57 Gynecologic examination 40280607 Z01.419 Take Calcium with Vitamin D 1200mg daily if not receiving in daily diet. It is strongly advised to have an annual flu shot and up can obtain at most pharmacies . If you have not had a TDap shot in the last 10 years you should obtain one as well. Discussed with patient & provided with informatio n regarding Gardisil vaccine to prevent the 4 strains for HPV that cause cervical cancer if under age 26. Encourage safe sexual practices, to use condoms and limit partners if not already in a monogamous relationsh ip. Do monthly self breast exams. Have mammogram yearly or every other year depending on family history. BRCA testing is now available for patients with strong genetic history of female cancer. If interested contact the office. Engage in daily exercise of low impact aerobic exercise 45-60 minutes 4-5 times weekly. Avoid tobacco and illicit drugs as well as using moderation with alcohol intake less than 1-2 8 oz beverages daily. This lifestyle behavior pattern will lead to less health conditions and longer life span. If BMI greater than 25 weight watchers or dietary consult advised. Patient received above instructio ns, and questions have been answered. If you have any questions please call or respond to this email. Patient was made aware of the patient portal and may obtain a paper copy of today's plan if desired. Pap/HPV done Counseled on Pap guidelines Pap Hx wnl CBE done SBE done IUD in place [id number] [address] , [facility] [address] [address] 10/13/2020 15:58:14 10/13/2020 16:46:52 Gynecologic examination [id number] Z01.419 Take Calcium with Vitamin D 1200mg daily if not receiving in daily diet. It is strongly advised to have an annual flu shot and up can obtain at most pharmacies . If you have not had a TDap shot in the last 10 years you should obtain one as well. Discussed with patient & provided with informatio n regarding Gardisil vaccine to prevent the 4 strains for HPV that cause cervical cancer if under age 26. Encourage safe sexual practices, to use condoms and limit partners if not already in a monogamous relationsh ip. Do monthly self breast exams. Have mammogram yearly or every other year depending on family history. BRCA testing is now available for patients with strong genetic history of female cancer. If interested contact the office. Engage in daily exercise of low impact aerobic exercise 45-60 minutes 4-5 times weekly. Avoid tobacco and illicit drugs as well as using moderation with alcohol intake less than 1-2 8 oz beverages daily. This lifestyle behavior pattern will lead to less health conditions and longer life span. If BMI greater than 25 weight watchers or dietary consult advised. Patient received above instructio ns, and questions have been answered. If you have any questions please call or respond to this email. Patient was made aware of the patient portal and may obtain a paper copy of today's plan if desired. Pap/HPV done Counseled on Pap guidelines Pap Hx wnl CBE done SBE done IUD in place Declines std screening Family his tory of cancer of colon 098455012 Z80.0 Z80.3 [employer] form for genetic cancer screening given with myla nuñez to fill it out & bring back if interested . She would like to contact her insurance company first to ask about coverage. She will call if any further questions. Genetic screening reviewed. Can refer to genetic counselor when results return. [id number] [facility] [address] [address] 10/02/2022 16:00:17 10/02/2022 17:12:04 Gynecologic examination [id number] Z01.419 Z11.51 Take Calcium with Vitamin D 1200mg daily if not receiving in daily diet. It is strongly advised to have an annual flu shot and up can obtain at most pharmacies . If you have not had a TDap shot in the last 10 years you should obtain one as well. Discussed with patient & provided with informatio n regarding Gardisil vaccine to prevent the 4 strains for HPV that cause cervical cancer if under age 26. Encourage safe sexual practices, to use condoms and limit partners if not already in a monogamous relationsh ip. Do monthly self breast exams. Have mammogram yearly or every other year depending on family history. BRCA testing is now available for patients with strong genetic history of female cancer. If interested contact the office. Engage in daily exercise of low impact aerobic exercise 45-60 minutes 4-5 times weekly. Avoid tobacco and illicit drugs as well as using moderation with alcohol intake less than 1-2 8 oz beverages daily. This lifestyle behavior pattern will lead to less health conditions and longer life span. If BMI greater than 25 weight watchers or dietary consult advised. Patient received above instructio ns, and questions have been answered. If you have any questions please call or respond to this email. Patient was made aware of the patient portal and may obtain a paper copy of today's plan if desired. Pap/HPV opts to sent. If wnl consider q3-5yr pap per asccp. STD Screen declined Genetic Screen discussed Colon Screen UTD PCP Dexa Screen na Routine Labs PCPMammo ordered Screening mammography 24 467278 Z12.31 [id number] CHAS Martinez [place] [address] [address] 01/07/2024 10:35:55 01/07/2024 11:35:21 Gynecologic examination [id number] Z01.419 WWEB - Mirena IUD, inserted 06/29/2018 (will 06/29/2026) pap updated per pt preference declined STI screenmamm ogram [place] [facility] UTDUTD with PCP Mirena IUD will 06/29/2016, can remove and replace sooner if desired for period regulation Patient advised to get an annual flu shot in the fall and she could obtain at local pharmacy. Also to obtain TDap vaccinatio n if you have not had one in the last 10 years. Recommend yearly mammograms . Encouraged monthly self breast exams. Encourage safe sexual practices, to use condoms and limit partners if not already in a monogamous relationsh ip. Engage in regular exercise. Avoid tobacco and illicit drugs. This lifestyle behavior pattern will lead to less health conditions and longer life span. If BMI greater than 25 dietary consult advised. All questions have been answered. Patient appears to understand informatio n. Screening for malignant neoplasm of breast 410103044 Z12.39 Health Concerns Section Related Observation LastModified by Organization Detai ls LastModified Time None Recorded Concern Status LastModified by Organization Details LastModified Time None Recorded Advance Directives Directive N: Payers Encounter Date Sequence Insurance Name Policy Number Policy Bates Covered Member ID Bates Member ID Guarantor Name 10/12/2019 1 [facility] [id number] Juliana Piersoninnis [id number] Juliana Nunn 10/13/2020 1 [facility] [id number] Juliana Piersoninnis [id number] Juliana Nunn 10/02/2022 1 [facility] [id number] Juliana Alexandra PiersonEdouard [id number] Juliana Piersoninnis 01/07/[address] [place] [address] [id number] Juliana L Edouard [id number] Juliana Nunn Notes Date Note Type Note Provider Name and Address Organization Details Recorded Time 10/12/2019 text/html Annual GYNReport ed bypatient.History: no gynecologic complaints Menstrual cycle:Normal menses Urinary symptoms:No hematuria; No incontinence Vulva:No genital lesion Vagina:Normal vaginal discharge Breast:No breast pain; No breast lump; No nipple discharge Current Contraception:Sati sfied with current contraception; Monogamous relationship; Intrauterine device (iud) Sexual complaints:No sexual complaints; No pain during intercourse; Normal libido Menopausal Symptoms:No menopausal symptoms; Normal vaginal lubrication Psychological symptoms:No depression; No anxiety; No PMDD Preventive measures:Encourage self breast examination; Encourage regular exercise; Encourage no tobacco use; Followed with Q3 year pap smear and high risk HPV typing [address], [place], [address], [facility] 10/12/2019 13:11:50 10/13/2020 text/html Annual GYNReport ed bypatient.History: no gynecologic complaints Menstrual cycle:Normal menses Urinary symptoms:No hematuria; No incontinence Vulva:No genital lesion Vagina:Normal vaginal discharge Breast:No breast pain; No breast lump; No nipple discharge Current Contraception:Sati sfied with current contraception; Monogamous relationship; Intrauterine device (iud) Sexual complaints:No sexual complaints; No pain during intercourse; Normal libido Menopausal Symptoms:No menopausal symptoms; Normal vaginal lubrication Psychological symptoms:No depression; No anxiety; No PMDD Preventive measures:Encourage self breast examination; Encourage regular exercise; Encourage no tobacco use; Followed with Q3 year pap smear and high risk HPV typing [address], [place], [address], [facility] 10/13/2020 16:44:47 10/02/2022 text/html Annual GYNReport ed bypatient.History: no gynecologic complaints Menstrual cycle:Normal menses (Amenorrheic on IUD mirena) Urinary symptoms:No hematuria; No incontinence Vulva:No genital lesion Vagina:Normal vaginal discharge Breast:No breast pain; No breast lump; No nipple discharge Current Contraception:Sati sfied with current contraception; Intrauterine device (iud) Sexual complaints:No sexual complaints; No pain during intercourse; Normal libido Menopausal Symptoms:No menopausal symptoms; Normal vaginal lubrication Psychological symptoms:No depression; No anxiety; No PMDD Preventive measures:Encourage self breast examination; Encourage regular exercise; Encourage no tobacco use; Encourage regular mammograms starting age 40; Followed with yearly pap smears; Needs to schedule mammogram; Up to date on colonoscopy screening [address], [place], [address], [facility] 10/02/2022 17:09:33 01/07/2024 text/html Annual GYNReport ed bypatient.Menstrua l cycle:Normal menses Urinary symptoms:No hematuria; No incontinence Vulva:No genital lesion Vagina:Normal vaginal discharge Breast:No breast pain; No breast lump; No nipple discharge Current Contraception:Sati sfied with current contraception; Intrauterine device (iud) Sexual complaints:No sexual complaints; No pain during intercourse; Normal libido Menopausal Symptoms:No menopausal symptoms; Normal vaginal lubrication Psychological symptoms:No depression; No anxiety; No PMDD Preventive measures:Encourage self breast examination; Encourage regular exercise; Encourage no tobacco use; Encourage regular mammograms starting age 42Notes:43yo WWEB - mirena IUD, inserted 06/29/2018 (will 06/29/2026)has started to have periods again in the last few monthslast pap 09/2022 - nilm, HPV (-)mammogram olonoscopy 2022 CHAS Martinez [address], [place], [address], [facility] 01/07/2024 11:21:38 OBGyn Episode Ob Episode Information Episode Created Date Number of Fetuses Patient Bloodtype Patient rh Status Prepregnancy Weight lbs Domestic Partner Domestic Partner Phone Father Name Automobile Mechanic Status 10/14/19 21 1 CLOSED Fetus Data First Name Last Name Admitted to NICU Weight (g) Sex Living Outcome Pediatric Complications Fetus ID Race Codes Race Delivery Type [id number] Vaginal Delivery Emory Calculation Initial Emory Date Initial Exam Date Initial Exam Provider Initial Ultrasound Date Last Menstrual Period Date Ultra Sound Weeks Gestation 0 Eighteen To Twenty Week Emory Update Ultra Sound Date Fundal Height At Umbil Quickening Date Ultra Sound Latest Weeks Gestation Final Emory Confirmed By Final Emory Confirmed Date Final Emory Date Ultra Sound Latest Days Gestation 0 0 Menstrual History Last Menstrual Date Menses Monthly On Bcp Conception Prior Menses Frequency Hcg Plus Date Menarche Onset Age Delivery Information Delivery Date Delivery Type Labor Anesthesia Weeks Gestation Incision Type Labor Labor Length Hrs Delivered By Post Complications Tubal Sterilization Discharge Date Comments 3 Discharge Information Feeding Method Contraceptive Method Maternal HG B and HCT Levels Ob Episode Information Episode Created Date Number of Fetuses Patient Bloodtype Patient rh Status Prepregnancy Weight lbs Domestic Partner Domestic Partner Phone Father Name Automobile Mechanic Status 10/14/19 21 1 CLOSED Fetus Data First Name Last Name Admitted to NICU Weight (g) Sex Living Outcome Pediatric Complications Fetus ID Race Codes Race Delivery Type [id number] Vaginal Delivery Emory Calculation Initial Emory Date Initial Exam Date Initial Exam Provider Initial Ultrasound Date Last Menstrual Period Date Ultra Sound Weeks Gestation 0 Eighteen To Twenty Week Emory Update Ultra Sound Date Fundal Height At Umbil Quickening Date Ultra Sound Latest Weeks Gestation Final Emory Confirmed By Final Emory Confirmed Date Final Emory Date Ultra Sound Latest Days Gestation 0 0 Menstrual History Last Menstrual Date Menses Monthly On Bcp Conception Prior Menses Frequency Hcg Plus Date Menarche Onset Age Delivery Information Delivery Date Delivery Type Labor Anesthesia Weeks Gestation Incision Type Labor Labor Length Hrs Delivered By Post Complications Tubal Sterilization Discharge Date Comments 2 Discharge Information Feeding Method Contraceptive Method Maternal HG B and HCT Levels
[2024-08-25 20:04] LABS: Alanine Aminotransferase 21 U/L (6-35); Albumin Level 4.5 g/dL (3.5-5.1); Alkaline Phosphatase 63 U/L (38-126); Anion Gap 9 mmol/L (4-12); Aspartate Amino Transferase 43 U/L (14-36); Bilirubin,Total 1.1 mg/dL (0.2-1.3); Blood Urea Nitrogen 11 mg/dL (7-17); Calcium 9.4 mg/dL (8.4-10.2); Carbon Dioxide 24 mmol/L (22-30); Chloride 102 mmol/L (98-107); Cholesterol 253 mg/dL (0-200); Estimated Glomerular Filt Rate > 60; Glucose 73 mg/dL (65-110); HDL Direct 72 mg/dL; Potassium 4.2 mmol/L (3.4-5.0); Sodium 135 mmol/L (137-145); Triglycerides 106 mg/dL (<150)
[2024-08-25 20:20] LABS: LDL Cholesterol Direct 136 mg/dL
== END 2024-08-25 10:08 | disposition home or self-care (01) ==
LOC: ANHGOSHLAB 10:07
PROVIDERS: PCP Family Medicine; Visit Provider Nurse Practitioner Family
DX: E03.9 Hypothyroidism, unspecified (principal); E66.9 Obesity, unspecified
CPT/HCPCS: 36415; 80053; 80061; 84443